=== PATIENT | male | born 1960 | race Two or more races ===

== ENCOUNTER 2017-07-08 15:54 | Emergency (ER) | payer OTHER ==
[~2017-07-08] VITALS: Ht 162.6 cm; Wt 72.6 kg
[2017-07-08] MEDS ORDERED: GENOPTIC O.O1 APPLIC BOTH EYES (16:24)
--- NOTE | 2017-07-08 16:30 | Emergency Room Report ---
History of Present Illness General Chief Complaint: Eye Problems Source: Patient Present Illness HPI Patient is a 57-year-old male who presented after increased left eye redness. The patient had injury to his left eye. He states 2-year-old granddaughter accidentally poked him in the left eye. He denies any visual changes. He denies any flashing lights or floaters. He had not been having any fever. Allergies: Coded Allergies: No Known Allergies (Unverified , 07/08/17) Patient History Past Medical History: see triage record Reviewed Nursing Documentation: PMH: Agreed, PSxH: Agreed Nursing Documentation-PMH Past Medical History: No History, Except For Hx Cardiac Problems: No Hx Hypertension: No Hx Pacemaker: No Hx Asthma: No Hx COPD: No Hx Diabetes: No Hx Cancer: No Hx Gastrointestinal Problems: No Hx Dialysis: No History Of Psychiatric Problem: No Hx Neurological Problems: No Hx Cerebrovascular Accident: No Hx Seizures: No Review of Systems All Other Systems: negative except mentioned in HPI Physical Exam Vital Signs Date Time Temp Pulse Resp B/P (MAP) Pulse Ox O2 Delivery O2 Flow Rate FiO2 07/08/17 16:05 98.2 82 16 139/88 96 Room Air General Appearance: GCS 15 Head: normocephalic, atraumatic Eyes: bilateral eye PERRL, bilateral eye other - left eye subconjunctival hemorrhage ENT: hearing grossly normal, normal voice Neck: full range of motion, supple Respiratory: no respiratory distress, speaking full sentences Cardiovascular #1: normal inspection, normal peripheral pulses, regular rate, rhythm, no edema Gastrointestinal: normal inspection, non tender, soft Musculoskeletal: normal range of motion, no calf tenderness Neurologic: normal inspection, alert, oriented x3, coroner transport technician III-XII nml as tested, normal gait Psychiatric: mood/affect normal Skin: no rash Medical Decision Making Diagnostic Impression: Primary Impression: Subconjunctival hemorrhage of left eye ER Course Patient presented for traumatic eye pain. Differential diagnosis included was not limited to globe rupture, hyphema, iritis, subconjunctival hemorrhage, retinal detachment. Patient's benign exam and does not appear to require any further imaging or laboratory testing at this time. The patient's visual acuity is unremarkable. Patient presented as listed conjunctival hemorrhage. He did not have any evidence of hyphema. The patient tetanus is up-to-date.The patient was advised to followup with inspector eyeglass in the next 2 days for reexamination. The patient was given prescription for topical eye antibiotics Last Vital Signs Date Time Temp Pulse Resp B/P (MAP) Pulse Ox O2 Delivery O2 Flow Rate FiO2 07/08/17 16:05 98.2 82 16 139/88 96 Room Air Status: improved Disposition: HOME, SELF-CARE Condition: Stable Scripts Gentamicin Sulfate (Gentak) 3.5 Gm Oint...g. 1 APPLIC BOTH EYES TWICE A DAY, #3.5 APPLIC Prov: Joaquim Atkins 07/08/17 Patient Instructions: Subconjunctival Hemorrhage Joaquim Atkins Jul 08, 2017 16:30
[2017-07-08 16:50] VITALS: BP 123/85
== END 2017-07-08 16:50 | disposition home or self-care (01) ==
LOC: EMR 16:41
DX: H11.32 Conjunctival hemorrhage, left eye (principal)
CPT/HCPCS: 99283